=== PATIENT | male | born 1990 | race Caucasian/White ===

== ENCOUNTER 2018-12-10 16:40 | Emergency (ER) | payer SELFPAY ==
[~2018-12-10] VITALS: Ht 175.3 cm; Wt 100.0 kg
[~2018-12-10 16:40] MED LIST: AMOXICILLIN500 MG PO; CLARITIN10 M2 PO; NO HOME MEDS
[2018-12-10 17:58] LABS: HEMATOCRIT 50.9 % (39.0-50.0); HEMOGLOBIN 17.4 g/dl (14.0-18.0); IMMATURE GRANULOCYTES 0.4 % (0.0-5.0); MEAN CORPUSCULAR HGB 29.4 pG CALC (26.0-32.0); MEAN CORPUSCULAR HGB CONC 34.2 g/L CALC (32.0-36.0); NEUT# 6.12 thou/uL (1.82-7.42); RED BLOOD COUNT 5.92 mill/uL (4.70-6.10); RED CELL DISTRI WIDTH 12.1 % (11.5-15.5)
[2018-12-10 18:11] LABS: ALBUMIN 5.2 g/dL (3.2-5.0); ALKALINE PHOSPHATASE 94 u/l (38-126); ANION GAP 20 (6-22 (CALC)); BILIRUBIN, TOTAL 1.5 mg/dL (0.0-1.4); BUN 10 mg/dL (9-20); BUN/CREATININE RATIO 7 (12-20 (CALC)); CARBON DIOXIDE 21 mmol/l (22-30); CHLORIDE 99 mmol/l (95-108); CREATININE 1.3 mg/dL (0.7-1.3); ETHYL ALCOHOL 0 mg/dl (0-30); GFR > 60 ML/MIN (>=60 (CALC)); GFR FOR AFR.AMER. > 60 ML/MIN (>=60 (CALC)); SGOT/AST 40 u/l (17-59); SODIUM 137 mmol/l (137-146)
[2018-12-10 19:19] LABS: URINE BLOOD DIPSTICK NEGATIVE (NEGATIVE); URINE GLUCOSE - DIPSTICK NEGATIVE (NEGATIVE); URINE KETONE NEGATIVE (NEGATIVE); URINE LEUK ESTERASE NEGATIVE (NEGATIVE); URINE NITRITE - DIPSTICK NEGATIVE (Negative); URINE PH 5.5 (4.5-8.0); URINE PROTEIN - DIPSTICK TRACE mg/dL (NEG-TRACE); URINE SPECIFIC GRAVITY >=1.030; URINE UROBILINOGEN - DIPSTICK 0.2 E.U./dL (0.2)
[2018-12-10 19:22] LABS: URINE BILIRUBIN - DIPSTICK NEGATIVE (NEGATIVE); URINE COLOR AMBER
[2018-12-10 19:25] LABS: BARBITURATES NEGATIVE (NEGATIVE); COCAINE NEGATIVE (NEGATIVE); METHADONE NEGATIVE (NEGATIVE); OXCYCODONE NEGATIVE (NEGATIVE); TETRAHYDROCANNABIONOL POSITIVE (NEGATIVE); TRICYLIC ANTIDEPRESSANTS NEGATIVE (NEGATIVE)
[2018-12-10 20:22] VITALS: BP 134/77
== END 2018-12-10 20:22 | disposition short-term general hospital (02) | DRG 880 ==
LOC: ED 16:40 → EDBD 16:40 → ED 17:03
PROVIDERS: Emergency Medicine
DX: R45.851 Suicidal ideations (principal); F15.10 Other stimulant abuse, uncomplicated; F12.10 Cannabis abuse, uncomplicated; S30.851A Superficial foreign body of abdominal wall, initial encounter; S40.251A Superficial foreign body of right shoulder, initial encounter; F17.200 Nicotine dependence, unspecified, uncomplicated; Y35.813A Legal intervention involving manhandling, suspect injured, initial encounter; Y92.89 Other specified places as the place of occurrence of the external cause